=== PATIENT | male | born 1950 | race Caucasian/White ===

== ENCOUNTER → 2019-05-25 | Outpatient (REF) | payer MEDICARE, MEDICAID ==
[2019-05-25 11:18] LABS: BASO # 0.1 10^3/uL (0.0-0.2); BASO % 0.5 % (0.0-1.0); EOS # 0.6 10^3/uL (0.0-0.5); EOS % 4.5 % (0.0-3.0); HEMATOCRIT 45.6 % (42.0-52.0); HEMOGLOBIN 14.8 g/dl (13.5-17.5); LYMPH # 2.3 10^3/uL (1.5-5.0); LYMPH % 17.9 % (24.0-44.0); MEAN CORPUSCULAR HEMOGLOBIN 29.1 pg (27.0-33.0); MEAN CORPUSCULAR HGB CONC 32.5 g/dl (32.0-36.5); MEAN CORPUSCULAR VOLUME 89.8 fl (80.0-96.0); MONO # 1.2 10^3/uL (0.0-0.8); MONO % 9.6 % (0.0-5.0); NEUTROPHILS # 8.7 10^3/uL (1.5-8.5); NEUTROPHILS % 66.7 % (36.0-66.0); PLATELET COUNT, AUTOMATED 218 10^3/uL (150-450); RED BLOOD COUNT 5.08 10^6/uL (4.30-6.10)
[2019-05-25 12:01] LABS: CALCIUM LEVEL 9.7 MG/DL (8.8-10.2); CREATININE FOR GFR 1.49 MG/DL (0.70-1.30); CREATININE, URINE 71.6 MG/DL; GLOMERULAR FILTRATION RATE 50.2 (>49); MALB URINE SIEMENS 75.2 MG/L; POTASSIUM SERUM 3.9 MEQ/L (3.5-5.1)
[2019-05-25 12:02] LABS: ALBUMIN 4.4 GM/DL (3.2-5.2); BILIRUBIN,TOTAL 1.5 MG/DL (0.2-1.0); CHOLESTEROL RISK RATIO 5.051 (<5); FREE T4 0.85 NG/DL (0.76-1.46); THYROID STIMULATING HORMONE 2.72 uIU/ML (0.358-3.740); TOTAL PROTEIN 7.7 GM/DL (6.4-8.2)
[2019-05-25 12:12] LABS: HEMOGLOBIN A1c 6.2 %
== END ==
LOC: M SFHCPLAZ 09:44
PROVIDERS: ATTEND Nurse Practitioner Family
DX: E11.9 Type 2 diabetes mellitus without complications (principal); E78.5 Hyperlipidemia, unspecified; I10 Essential (primary) hypertension

== ENCOUNTER → 2019-08-03 | Outpatient (REF) ==
[2019-08-03 10:53] LABS: BASO % 0.5 % (0.0-1.0); EOS # 0.7 10^3/uL (0.0-0.5); EOS % 10.5 % (0.0-3.0); HEMATOCRIT 25.2 % (42.0-52.0); HEMOGLOBIN 7.9 g/dl (13.5-17.5); LYMPH # 1.7 10^3/uL (1.5-5.0); LYMPH % 27.4 % (24.0-44.0); MEAN CORPUSCULAR HEMOGLOBIN 28.6 pg (27.0-33.0); MEAN CORPUSCULAR HGB CONC 31.3 g/dl (32.0-36.5); MEAN CORPUSCULAR VOLUME 91.3 fl (80.0-96.0); MONO # 0.9 10^3/uL (0.0-0.8); MONO % 13.9 % (0.0-5.0); NEUTROPHILS # 2.9 10^3/uL (1.5-8.5); NEUTROPHILS % 45.3 % (36.0-66.0); PLATELET COUNT, AUTOMATED 294 10^3/uL (150-450); RED BLOOD COUNT 2.76 10^6/uL (4.30-6.10); WHITE BLOOD COUNT 6.3 10^3/uL (4.0-10.0)
[2019-08-03 11:13] LABS: ALBUMIN 2.7 GM/DL (3.2-5.2); CALCIUM LEVEL 7.8 MG/DL (8.8-10.2); CREATININE FOR GFR 5.76 MG/DL (0.70-1.30); GLOMERULAR FILTRATION RATE 10.5 (>49); PHOSPHORUS LEVEL 6.4 MG/DL (2.5-4.9); POTASSIUM SERUM 3.3 MEQ/L (3.5-5.1)
== END ==
LOC: SKLAB3 06:54
PROVIDERS: ATTEND Family Medicine
DX: N18.9 Chronic kidney disease, unspecified (principal)

== ENCOUNTER → 2019-08-06 | Outpatient (REF) ==
[2019-08-06 11:17] LABS: CALCIUM LEVEL 8.7 MG/DL (8.8-10.2); CREATININE FOR GFR 5.56 MG/DL (0.70-1.30); PHOSPHORUS LEVEL 5.4 MG/DL (2.5-4.9); POTASSIUM SERUM 4.4 MEQ/L (3.5-5.1)
== END ==
LOC: SKLAB3 07:06
PROVIDERS: ATTEND Family Medicine
DX: N18.9 Chronic kidney disease, unspecified (principal)

== ENCOUNTER → 2019-08-07 | Outpatient (REF) ==
[2019-08-07 08:52] LABS: BASO # 0.1 10^3/uL (0.0-0.2); BASO % 0.4 % (0.0-1.0); HEMATOCRIT 27.9 % (42.0-52.0); HEMOGLOBIN 8.8 g/dl (13.5-17.5); LYMPH # 2.6 10^3/uL (1.5-5.0); LYMPH % 22.6 % (24.0-44.0); MEAN CORPUSCULAR HEMOGLOBIN 28.3 pg (27.0-33.0); MEAN CORPUSCULAR HGB CONC 31.5 g/dl (32.0-36.5); MEAN CORPUSCULAR VOLUME 89.7 fl (80.0-96.0); MONO % 8.5 % (0.0-5.0); NEUTROPHILS # 6.5 10^3/uL (1.5-8.5); NEUTROPHILS % 57.5 % (36.0-66.0); PLATELET COUNT, AUTOMATED 352 10^3/uL (150-450); RED BLOOD COUNT 3.11 10^6/uL (4.30-6.10); WHITE BLOOD COUNT 11.4 10^3/uL (4.0-10.0)
== END ==
LOC: SKLAB3 07:00
PROVIDERS: ATTEND Family Medicine
DX: D64.9 Anemia, unspecified (principal)

== ENCOUNTER → 2019-08-09 | Outpatient (REF) ==
[2019-08-09 08:28] LABS: BASO # 0.1 10^3/uL (0.0-0.2); BASO % 0.6 % (0.0-1.0); EOS # 0.9 10^3/uL (0.0-0.5); EOS % 9.3 % (0.0-3.0); HEMOGLOBIN 9.1 g/dl (13.5-17.5); LYMPH # 2.6 10^3/uL (1.5-5.0); LYMPH % 26.4 % (24.0-44.0); MEAN CORPUSCULAR HGB CONC 32.5 g/dl (32.0-36.5); MEAN CORPUSCULAR VOLUME 89.2 fl (80.0-96.0); MONO # 0.9 10^3/uL (0.0-0.8); MONO % 9.3 % (0.0-5.0); NEUTROPHILS # 5.1 10^3/uL (1.5-8.5); NEUTROPHILS % 52.2 % (36.0-66.0); PLATELET COUNT, AUTOMATED 372 10^3/uL (150-450); RED BLOOD COUNT 3.14 10^6/uL (4.30-6.10); WHITE BLOOD COUNT 9.8 10^3/uL (4.0-10.0)
[2019-08-09 08:50] LABS: ALBUMIN 3.1 GM/DL (3.2-5.2); CALCIUM LEVEL 9.3 MG/DL (8.8-10.2); CREATININE FOR GFR 5.02 MG/DL (0.70-1.30); GLOMERULAR FILTRATION RATE 12.3 (>49); POTASSIUM SERUM 5.2 MEQ/L (3.5-5.1)
[2019-08-09 09:01] LABS: TOTAL 25(OH) VITAMIN D 35.2 NG/ML (30.0-100.0)
== END ==
LOC: SKLAB3 07:00
PROVIDERS: ATTEND Family Medicine
DX: N18.9 Chronic kidney disease, unspecified (principal); E55.9 Vitamin D deficiency, unspecified; D64.9 Anemia, unspecified

== ENCOUNTER → 2019-08-14 | Outpatient (REF) | LOC: SKLAB3 11:31 | PROVIDERS: ATTEND Internal Medicine | DX: Z03.818 Encounter for observation for suspected exposure to other biological agents ruled out (principal) ==

== ENCOUNTER → 2019-08-16 | Outpatient (REF) ==
[2019-08-16 15:16] LABS: APPEARANCE, URINE CLEAR (CLEAR); BACTERIA, URINE AUTO NEGATIVE (NEGATIVE); BILIRUBIN, URINE AUTO NEGATIVE (NEGATIVE); BLOOD, URINE BLOOD NEGATIVE (NEGATIVE); COLOR, URINE YELLOW (YELLOW); GLUCOSE, URINE (UA) AUTO NEGATIVE (NEGATIVE); KETONE, URINE AUTO NEGATIVE (NEGATIVE); LEUKOCYTE ESTERASE, URINE AUTO NEGATIVE (NEGATIVE); MUCUS, URINE SMALL (NEGATIVE); NITRITE, URINE AUTO NEGATIVE (NEGATIVE); PROTEIN, URINE AUTO 1+ mg/dL (NEGATIVE); RBC, URINE AUTO 3 /HPF (0-3); SPECIFIC GRAVITY URINE AUTO 1.011 (1.002-1.035); SQUAMOUS EPITHELIAL CELL UR AU 0 /HPF (0-6); UROBILINOGEN, URINE AUTO 0.2 mg/dL (0.0-2.0); WBC, URINE AUTO 2 /HPF (0-3)
--- NOTE | 2019-08-17 13:10 | NOCOX ---
DATE OF STUDY: 08/16/2019 Nocturnal oximetry was performed on room air. Testing was of good quality. Total valid sampling was 9 hours and 5 minutes. There were no significant oxygen desaturations. There was minimal variability with oxygen saturations ranging 92% to 100%, heart rate ranging 63-112. Only minimal artifact. IMPRESSION: Minimal variation without significant hypoxia. If there is concern for obstructive sleep apnea, would consider referral for possible formal polysomnogram.
== END ==
LOC: SKLAB3 07:00
PROVIDERS: ATTEND Family Medicine
DX: N18.9 Chronic kidney disease, unspecified (principal)

== ENCOUNTER → 2019-08-21 | Outpatient (REF) | payer MEDICARE, MEDICAID ==
[2019-08-21 17:56] LABS: BASO # 0.1 10^3/uL (0.0-0.2); BASO % 0.8 % (0.0-1.0); EOS % 7.5 % (0.0-3.0); HEMATOCRIT 32.7 % (42.0-52.0); HEMOGLOBIN 10.3 g/dl (13.5-17.5); LYMPH # 4.3 10^3/uL (1.5-5.0); LYMPH % 34.2 % (24.0-44.0); MEAN CORPUSCULAR HEMOGLOBIN 28.8 pg (27.0-33.0); MEAN CORPUSCULAR HGB CONC 31.5 g/dl (32.0-36.5); MEAN CORPUSCULAR VOLUME 91.3 fl (80.0-96.0); MONO # 1.2 10^3/uL (0.0-0.8); MONO % 9.4 % (0.0-5.0); NEUTROPHILS % 47.5 % (36.0-66.0); PLATELET COUNT, AUTOMATED 306 10^3/uL (150-450); RED BLOOD COUNT 3.58 10^6/uL (4.30-6.10); WHITE BLOOD COUNT 12.6 10^3/uL (4.0-10.0)
[2019-08-21 18:00] LABS: AMORPHOUS SEDIMENT SMALL (NEGATIVE); APPEARANCE, URINE HAZY (CLEAR); BACTERIA, URINE AUTO 1+ (NEGATIVE); BILIRUBIN, URINE AUTO NEGATIVE (NEGATIVE); BLOOD, URINE BLOOD NEGATIVE (NEGATIVE); COLOR, URINE YELLOW (YELLOW); GLUCOSE, URINE (UA) AUTO NEGATIVE (NEGATIVE); KETONE, URINE AUTO NEGATIVE (NEGATIVE); LEUKOCYTE ESTERASE, URINE AUTO NEGATIVE (NEGATIVE); MUCUS, URINE SMALL (NEGATIVE); NITRITE, URINE AUTO NEGATIVE (NEGATIVE); PROTEIN, URINE AUTO 1+ mg/dL (NEGATIVE); RBC, URINE AUTO 0 /HPF (0-3); SPECIFIC GRAVITY URINE AUTO 1.011 (1.002-1.035); SQUAMOUS EPITHELIAL CELL UR AU 0 /HPF (0-6); UROBILINOGEN, URINE AUTO 0.2 mg/dL (0.0-2.0); WBC, URINE AUTO 4 /HPF (0-3)
[2019-08-21 18:28] LABS: ALBUMIN 4.3 GM/DL (3.2-5.2); ALT/SGPT 40 U/L (12-78); BILIRUBIN,TOTAL 0.9 MG/DL (0.2-1.0); BLOOD UREA NITROGEN 67 MG/DL (7-18); CALCIUM LEVEL 9.4 MG/DL (8.8-10.2); CARBON DIOXIDE LEVEL 21 MEQ/L (21-32); CHLORIDE LEVEL 105 MEQ/L (98-107); CHOLESTEROL LEVEL 144 MG/DL (<200); CHOLESTEROL RISK RATIO 4.235 (<5); CREATININE FOR GFR 5.12 MG/DL (0.70-1.30); FREE T4 1.16 NG/DL (0.76-1.46); GLOMERULAR FILTRATION RATE 12.1 (>49); GLUCOSE, FASTING 108 MG/DL (70-100); HDL CHOLESTEROL 34 MG/DL (>40); NON-HDL-C 110 MG/DL; POTASSIUM SERUM 4.7 MEQ/L (3.5-5.1); SODIUM LEVEL 137 MEQ/L (136-145); TOTAL PROTEIN 8.7 GM/DL (6.4-8.2); TRIGLYCERIDES LEVEL 544 MG/DL (<150); VITAMIN B12 LEVEL 719 PG/ML (247-911)
[2019-08-21 18:41] LABS: MAU/CREAT RATIO 154.2 MCG/MG (0.0-30.0)
== END ==
LOC: M SFHCPLAZ 15:43
PROVIDERS: ATTEND Family Medicine
DX: E78.5 Hyperlipidemia, unspecified (principal); N18.4 Chronic kidney disease, stage 4 (severe); E11.9 Type 2 diabetes mellitus without complications; Z12.5 Encounter for screening for malignant neoplasm of prostate
CPT/HCPCS: 36415; 80053; 80061; 81001; 82043; 82607; 83036; 83525; 84165; 84439; 84443; 85025; 85046; G0103

== ENCOUNTER → 2019-08-31 | Outpatient (CLI) | payer MEDICARE, MEDICAID ==
--- NOTE | 2019-08-31 11:35 | REP ---
LOW DOSE LUNG SCREENING CT: Low dose lung screening CT exam is performed without IV contrast. Scattered bilateral fibrotic changes are present. There is a calcified granuloma in the right upper lobe. No suspicious pulmonary nodule is seen. There is mild diffuse bronchiectasis. There is no consolidating infiltrate. Multiple sternal wires and mediastinal clips are present. There are mild atherosclerotic calcifications of the thoracic aorta with ectasia of the ascending thoracic aorta 4.6 cm in AP dimension. There are degenerative changes of the spine. The heart is upper limits of normal in size. No pleural effusion is seen. IMPRESSION: Lung RADS category [address] No suspicious nodules. Recommend followup exam in 1 year. Electronically Signed by Marshall Quiroz MD 08/31/2019 11:43 A
== END ==
LOC: M RAD 10:13
PROVIDERS: ATTEND Family Medicine

== ENCOUNTER → 2019-10-04 | Outpatient (REF) | payer OTHER, MEDICAID ==
[2019-10-04 17:49] LABS: PERCENT SATURATION 18.6 % (19.7-50.0)
== END ==
LOC: M LAB REF 16:44
PROVIDERS: ATTEND Internal Medicine Nephrology
DX: N18.9 Chronic kidney disease, unspecified (principal); D63.1 Anemia in chronic kidney disease

== ENCOUNTER → 2019-10-18 | Outpatient (REF) | payer MEDICARE, MEDICAID ==
[2019-10-18 19:41] LABS: BASO # 0.1 10^3/uL (0.0-0.2); BASO % 0.7 % (0.0-1.0); EOS # 0.9 10^3/uL (0.0-0.5); EOS % 7.1 % (0.0-3.0); LYMPH # 4.4 10^3/uL (1.5-5.0); MEAN CORPUSCULAR HGB CONC 30.8 g/dl (32.0-36.5); MEAN CORPUSCULAR VOLUME 91.1 fl (80.0-96.0); MONO % 15.5 % (0.0-5.0); NEUTROPHILS # 5.4 10^3/uL (1.5-8.5); NEUTROPHILS % 42.3 % (36.0-66.0); PLATELET COUNT, AUTOMATED 304 10^3/uL (150-450); RED BLOOD COUNT 4.28 10^6/uL (4.30-6.10); WHITE BLOOD COUNT 12.8 10^3/uL (4.0-10.0)
[2019-10-18 20:08] LABS: ALBUMIN 4.3 GM/DL (3.2-5.2); BILIRUBIN,TOTAL 1.1 MG/DL (0.2-1.0); CALCIUM LEVEL 9.1 MG/DL (8.8-10.2); CREATININE FOR GFR 4.6 MG/DL (0.70-1.30); GLOMERULAR FILTRATION RATE 13.6 (>49); POTASSIUM SERUM 4.4 MEQ/L (3.5-5.1); TOTAL PROTEIN 8.2 GM/DL (6.4-8.2)
[2019-10-19 09:56] LABS: HEMOGLOBIN A1c 5.4 %
== END ==
LOC: M SFHCPLAZ 15:08
PROVIDERS: ATTEND Physician Assistant Medical
DX: E11.9 Type 2 diabetes mellitus without complications (principal); N18.4 Chronic kidney disease, stage 4 (severe); D63.8 Anemia in other chronic diseases classified elsewhere

== ENCOUNTER 2019-10-24 10:24 | Outpatient (CLI) | payer MEDICARE, MEDICAID ==
[~2019-10-24] VITALS: Ht 170.2 cm; Wt 95.9 kg
[2019-10-24 10:43] VITALS: BP 181/91
[2019-10-24] MEDS ORDERED: ALBUTEROL SULFATE 2.5 MG/0.5 ML INH NEB SOLN INH PRN (10:45)
[2019-10-24] MEDS ORDERED: NS 1,000 ML IV SCH (10:45)
[2019-10-24] MEDS ORDERED: methylPREDNISolone 125MG 2ML VIAL IV PRN (10:45)
[2019-10-24] MEDS ORDERED: EPINEPHrine INJ 1 MG/ML 1ML AMP IM PRN (10:45)
[2019-10-24] MEDS ORDERED: FERRIC CARBOXYMALTOSE INJ 750 MG in NS 250 ML IV ONE (10:45)
[2019-10-24] MEDS ORDERED: diphenhydrAMINE 50MG/ML VIAL (J1200) IV PRN (10:45)
[2019-10-24 11:15] VITALS: BP 143/86
[2019-10-24 13:00] VITALS: BP 151/82
== END 2019-10-24 13:00 | disposition home or self-care (01) ==
LOC: M INFU 10:24
PROVIDERS: ATTEND Internal Medicine Nephrology
DX: D64.9 Anemia, unspecified (principal); N18.9 Chronic kidney disease, unspecified
CPT/HCPCS: 96365; J1439

== ENCOUNTER 2019-10-31 10:51 | Outpatient (CLI) | payer MEDICARE, MEDICAID ==
[2019-10-31] MEDS ORDERED: FERRIC CARBOXYMALTOSE ONE (13:00)
== END 2019-10-31 13:30 | disposition home or self-care (01) ==
LOC: M INFU 10:51
PROVIDERS: ATTEND Internal Medicine Nephrology
DX: N18.9 Chronic kidney disease, unspecified (principal); D50.9 Iron deficiency anemia, unspecified
CPT/HCPCS: 96365; 96366; J1439

== ENCOUNTER → 2020-08-05 | Outpatient (CLI) | payer MEDICARE, MEDICAID ==
[2020-08-05 12:15] LABS: BASO # 0.1 10^3/uL (0.0-0.2); BASO % 0.5 % (0.0-1.0); EOS # 0.7 10^3/uL (0.0-0.5); EOS % 5.2 % (0.0-3.0); HEMATOCRIT 40.2 % (42.0-52.0); LYMPH # 3.9 10^3/uL (1.5-5.0); LYMPH % 29.5 % (24.0-44.0); MEAN CORPUSCULAR HGB CONC 32.3 g/dl (32.0-36.5); MEAN CORPUSCULAR VOLUME 86.5 fl (80.0-96.0); MONO # 1.5 10^3/uL (0.0-0.8); MONO % 11.5 % (2.0-8.0); NEUTROPHILS # 6.9 10^3/uL (1.5-8.5); NEUTROPHILS % 52.7 % (36.0-66.0); PLATELET COUNT, AUTOMATED 233 10^3/uL (150-450); RED BLOOD COUNT 4.65 10^6/uL (4.30-6.10)
[2020-08-05 12:35] LABS: HEMOGLOBIN A1c 6.1 %
[2020-08-05 12:38] LABS: WHITE BLOOD COUNT 13.2 10^3/uL (4.0-10.0)
[2020-08-05 12:49] LABS: BILIRUBIN,TOTAL 1.6 MG/DL (0.2-1.0); CALCIUM LEVEL 9.8 MG/DL (8.8-10.2); CREATININE FOR GFR 2.85 MG/DL (0.70-1.30); GLOMERULAR FILTRATION RATE 23.6 (>49); POTASSIUM SERUM 3.5 MEQ/L (3.5-5.1)
[2020-08-05 12:50] LABS: ALBUMIN 4.1 GM/DL (3.2-5.2); CHOLESTEROL RISK RATIO 4.181 (<5); TOTAL PROTEIN 7.8 GM/DL (6.4-8.2)
== END ==
LOC: M WUC 09:17
PROVIDERS: ATTEND Nurse Practitioner Family
DX: E11.9 Type 2 diabetes mellitus without complications (principal); D63.8 Anemia in other chronic diseases classified elsewhere; E78.5 Hyperlipidemia, unspecified; Z12.5 Encounter for screening for malignant neoplasm of prostate
CPT/HCPCS: 36415; 80053; 80061; 83036; 85025; G0103

== ENCOUNTER → 2020-10-08 | Outpatient (REF) | payer MEDICARE, MEDICAID | LOC: M LAB REF 17:16 | PROVIDERS: ATTEND Internal Medicine Nephrology | DX: E87.6 Hypokalemia (principal) ==

== ENCOUNTER → 2021-03-06 | Outpatient (CLI) | payer MEDICARE, MEDICAID ==
--- NOTE | 2021-03-08 06:23 | REP ---
INDICATION: SMOKER COMPARISON: 08/31/2019 TECHNIQUE: Axial noncontrast images from the thoracic inlet to the upper abdomen using low-dose lung screening technique (LDCT). FINDINGS: Lung cain are relatively symmetric with minimal chronic age-related interstitial changes and small focal areas of scarring primarily in the middle lobe and lingula. No acute consolidation, suspicious nodule or mass. No effusion. No pneumothorax. No obvious adenopathy. Tracheobronchial tree is patent. IMPRESSION: Lung-RADS category 1. Chronic stable changes. Management recommendations include annual low-dose CT surveillance. <Electronically signed by Zhang Hawkins > 03/08/21 0619
== END ==
LOC: M RAD 14:09
PROVIDERS: ATTEND Nurse Practitioner Adult Health
DX: Z87.891 Personal history of nicotine dependence (principal)

== ENCOUNTER → 2021-04-30 | Outpatient (CLI) | payer MEDICARE, MEDICAID ==
[2021-04-30 11:43] LABS: BASO # 0.1 10^3/uL (0.0-0.2); BASO % 0.6 % (0.0-1.0); EOS # 0.7 10^3/uL (0.0-0.5); EOS % 5.3 % (0.0-3.0); HEMATOCRIT 39.7 % (42.0-52.0); HEMOGLOBIN 12.1 g/dl (13.5-17.5); LYMPH # 3.9 10^3/uL (1.5-5.0); LYMPH % 28.6 % (24.0-44.0); MEAN CORPUSCULAR HEMOGLOBIN 26.9 pg (27.0-33.0); MEAN CORPUSCULAR HGB CONC 30.5 g/dl (32.0-36.5); MEAN CORPUSCULAR VOLUME 88.4 fl (80.0-96.0); MONO # 1.4 10^3/uL (0.0-0.8); MONO % 9.9 % (2.0-8.0); NEUTROPHILS # 7.5 10^3/uL (1.5-8.5); NEUTROPHILS % 54.6 % (36.0-66.0); PLATELET COUNT, AUTOMATED 271 10^3/uL (150-450); RED BLOOD COUNT 4.49 10^6/uL (4.30-6.10); WHITE BLOOD COUNT 13.7 10^3/uL (4.0-10.0)
[2021-04-30 13:46] LABS: HEMOGLOBIN A1c 7.1 %
[2021-04-30 14:55] LABS: ALT/SGPT 54 U/L (12-78); BLOOD UREA NITROGEN 27 MG/DL (7-18); CALCIUM LEVEL 9.3 MG/DL (8.8-10.2); CARBON DIOXIDE LEVEL 27 MEQ/L (21-32); CHLORIDE LEVEL 100 MEQ/L (98-107); CREATININE FOR GFR 2.95 MG/DL (0.70-1.30); GLOMERULAR FILTRATION RATE 22.7 (>49); GLUCOSE, FASTING 151 MG/DL (70-100); POTASSIUM SERUM 3.9 MEQ/L (3.5-5.1); SODIUM LEVEL 137 MEQ/L (136-145); TRIGLYCERIDES LEVEL 240 MG/DL (<150)
[2021-04-30 14:56] LABS: ALBUMIN 3.6 GM/DL (3.2-5.2); CHOLESTEROL LEVEL 106 MG/DL (<200); CHOLESTEROL RISK RATIO 3.785 (<5); HDL CHOLESTEROL 28 MG/DL (>40); LDL CHOLESTEROL 30 MG/DL (<100); NON-HDL-C 78 MG/DL
[2021-05-01 10:54] LABS: TOTAL 25(OH) VITAMIN D 71.7 NG/ML (30.0-100.0)
== END ==
LOC: M WUC 09:42
PROVIDERS: ATTEND Nurse Practitioner Family
DX: Z12.5 Encounter for screening for malignant neoplasm of prostate (principal); E78.5 Hyperlipidemia, unspecified; D63.8 Anemia in other chronic diseases classified elsewhere; E11.9 Type 2 diabetes mellitus without complications; E55.9 Vitamin D deficiency, unspecified
CPT/HCPCS: 36415; 80053; 80061; 82043; 82306; 83036; 85025; G0103

== ENCOUNTER → 2021-08-05 | Outpatient (CLI) | payer MEDICARE, MEDICAID | LOC: M SLEEP 20:00 | PROVIDERS: ATTEND Nurse Practitioner Adult Health | DX: G47.30 Sleep apnea, unspecified (principal) ==

== ENCOUNTER → 2022-01-12 | Outpatient (CLI) | payer MEDICARE, MEDICAID | LOC: M SLEEP 20:00 | PROVIDERS: ATTEND Nurse Practitioner Adult Health | DX: G47.33 Obstructive sleep apnea (adult) (pediatric) (principal) ==

== ENCOUNTER → 2022-03-08 | Outpatient (CLI) | payer MEDICARE, MEDICAID | LOC: M RAD 07:44 | PROVIDERS: ATTEND Nurse Practitioner Adult Health | DX: Z87.891 Personal history of nicotine dependence (principal) ==

== ENCOUNTER → 2022-09-30 | Outpatient (REF) | payer MEDICARE, MEDICAID ==
[2022-09-30 18:49] LABS: PERCENT SATURATION 10.6 % (19.7-50.0)
[2022-09-30 18:51] LABS: FERRITIN 9.2 NG/ML (10.5-307.3)
== END ==
LOC: M LAB REF 17:35
PROVIDERS: ATTEND Nurse Practitioner Family
DX: D50.9 Iron deficiency anemia, unspecified (principal)

== ENCOUNTER 2022-11-02 09:56 | Outpatient (CLI) | payer MEDICARE, MEDICAID ==
[~2022-11-02] VITALS: Ht 170.2 cm; Wt 98.0 kg
[~2022-11-02 09:56] MED LIST: ALBUTEROL SULFATE 2.5MG/0.5ML INH NEB SOLN INH PRN; EPINEPHrine INJ 1 MG/ML 1ML AMP IM PRN; diphenhydrAMINE 50MG/ML VIAL IV PRN; methylPREDNISolone 125MG 2ML VIAL IV PRN
[2022-11-02 10:35] VITALS: BP 145/75; O2SAT 100
[2022-11-02] MEDS ORDERED: NS 1,000 ML IV SCH (11:00)
[2022-11-02] MEDS ORDERED: IRON SUCROSE 400 MG in NS 250 ML OVER 2.5 HRS IV ONE (11:00)
[2022-11-02 12:30] VITALS: BP 113/62; O2SAT 100
[2022-11-02 13:45] VITALS: BP 126/70; O2SAT 97
== END 2022-11-02 14:10 | disposition home or self-care (01) ==
LOC: M INFU 09:56
PROVIDERS: ATTEND Internal Medicine Nephrology
DX: D50.9 Iron deficiency anemia, unspecified (principal); Z88.0 Allergy status to penicillin; Z88.1 Allergy status to other antibiotic agents; Z88.8 Allergy status to other drugs, medicaments and biological substances
CPT/HCPCS: 96365; 96366; J1756

== ENCOUNTER → 2023-04-26 | Outpatient (CLI) | payer MEDICARE, MEDICAID | LOC: M RAD 11:38 | PROVIDERS: ATTEND Nurse Practitioner Adult Health | DX: Z87.891 Personal history of nicotine dependence (principal) ==

== ENCOUNTER → 2023-06-08 | Outpatient (REF) | payer MEDICARE, MEDICAID ==
[2023-06-08 18:26] LABS: PERCENT SATURATION 4.9 % (19.7-50.0)
[2023-06-08 18:29] LABS: FERRITIN 6.4 NG/ML (10.5-307.3)
== END ==
LOC: M LAB REF 17:23
PROVIDERS: ATTEND Nurse Practitioner Family
DX: D50.9 Iron deficiency anemia, unspecified (principal)

== ENCOUNTER 2023-06-21 06:21 | Outpatient (CLI) | payer MEDICARE, MEDICAID ==
[~2023-06-21] VITALS: Ht 170.2 cm; Wt 98.1 kg
[2023-06-21] MEDS ORDERED: methylPREDNISolone 125MG 2ML VIAL IV PRN (07:01)
[2023-06-21] MEDS ORDERED: ALBUTEROL SULFATE 2.5MG/0.5ML INH NEB SOLN INH PRN (07:01)
[2023-06-21] MEDS ORDERED: EPINEPHrine INJ 1 MG/ML 1ML AMP IM PRN (07:01)
[2023-06-21] MEDS ORDERED: diphenhydrAMINE 50MG/ML VIAL IV PRN (07:01)
[2023-06-21] MEDS ORDERED: NS 1,000 ML IV SCH (07:30)
[2023-06-21 07:37] VITALS: BP 134/68; O2SAT 99
[2023-06-21] MEDS: IRON SUCROSE 25 MG in NS 23.75 ML IV ONE (07:55)
[2023-06-21 08:40] VITALS: BP 125/64; O2SAT 98
[2023-06-21] MEDS: IRON SUCROSE 475 MG in NS 250 ML IV ONE (08:41)
[2023-06-21 09:30] VITALS: BP 123/69; O2SAT 98
[2023-06-21 10:30] VITALS: BP 138/76; O2SAT 97
[2023-06-21 11:30] VITALS: BP 133/87; O2SAT 97
[2023-06-21 12:50] VITALS: BP 136/75; O2SAT 97
== END 2023-06-21 12:40 | disposition home or self-care (01) ==
LOC: M INFU 06:21
PROVIDERS: ATTEND Nurse Practitioner Family
DX: N18.9 Chronic kidney disease, unspecified (principal); D63.1 Anemia in chronic kidney disease; Z88.0 Allergy status to penicillin; Z88.1 Allergy status to other antibiotic agents; Z88.7 Allergy status to serum and vaccine
CPT/HCPCS: 96365; 96366; J1756

== ENCOUNTER 2023-07-05 09:30 | Outpatient (CLI) | payer MEDICARE, MEDICAID ==
[~2023-07-05] VITALS: Ht 170.2 cm; Wt 98.2 kg
[2023-07-05 09:30] VITALS: BP 175/82; O2SAT 100
[~2023-07-05 09:30] MED LIST changes: +NS 1,000 ML IV SCH
[2023-07-05] MEDS: IRON SUCROSE 500 MG in NS 250 ML OVER 4 HRS IV ONE (09:54)
[2023-07-05 12:00] VITALS: BP 110/66; O2SAT 96
[2023-07-05 13:40] VITALS: BP 108/58; O2SAT 95
[2023-07-05 14:33] VITALS: BP 105/63; O2SAT 94
== END 2023-07-05 14:35 | disposition home or self-care (01) ==
LOC: M INFU 09:30
PROVIDERS: ATTEND Nurse Practitioner Family
DX: N18.9 Chronic kidney disease, unspecified (principal); D63.1 Anemia in chronic kidney disease
CPT/HCPCS: 96365; 96366; J1756

== ENCOUNTER → 2023-09-09 | Outpatient (CLI) | payer MEDICARE, MEDICAID ==
[2023-09-09 17:22] LABS: BASO # 0.1 10^3/uL (0.0-0.2); BASO % 0.7 % (0.0-1.0); EOS # 0.5 10^3/uL (0.0-0.5); EOS % 3.8 % (0.0-3.0); HEMOGLOBIN 11.7 g/dl (13.5-17.5); LYMPH # 4.5 10^3/uL (1.5-5.0); MEAN CORPUSCULAR HEMOGLOBIN 25.9 pg (27.0-33.0); MEAN CORPUSCULAR VOLUME 86.5 fl (80.0-96.0); MONO # 1.6 10^3/uL (0.0-0.8); MONO % 12.1 % (2.0-8.0); NEUTROPHILS # 6.8 10^3/uL (1.5-8.5); PLATELET COUNT, AUTOMATED 214 10^3/uL (150-450); RED BLOOD COUNT 4.51 10^6/uL (4.30-6.10); WHITE BLOOD COUNT 13.6 10^3/uL (4.0-10.0)
[2023-09-09 17:37] LABS: CREATININE, URINE 107.4 MG/DL; MAU/CREAT RATIO 20.4 MCG/MG (0.0-30.0)
[2023-09-09 17:48] LABS: PSA SCREENING 0.04 NG/ML (< 4.00)
[2023-09-09 17:49] LABS: ALBUMIN 3.9 G/DL (3.2-5.2); BILIRUBIN,TOTAL 1.9 MG/DL (0.3-1.2); CALCIUM LEVEL 9.4 MG/DL (8.3-10.6); CHOLESTEROL RISK RATIO 3.75 (<5); CREATININE FOR GFR 2.97 MG/DL (0.70-1.30); GLOMERULAR FILTRATION RATE 22.3 (>42); HDL CHOLESTEROL 29.6 MG/DL (>40); LDL CHOLESTEROL 31.2 MG/DL (<100); NON-HDL-C 81.4 MG/DL; PERCENT SATURATION 11.8 % (19.7-50.0); POTASSIUM SERUM 3.8 MMOL/L (3.5-5.1); TOTAL PROTEIN 7.9 G/DL (5.7-8.2)
[2023-09-09 17:58] LABS: HEMOGLOBIN A1c 5.7 % (4.0-6.0)
== END ==
LOC: M WUC 12:36
PROVIDERS: ATTEND Nurse Practitioner Family
DX: Z12.5 Encounter for screening for malignant neoplasm of prostate (principal); D63.8 Anemia in other chronic diseases classified elsewhere; E78.5 Hyperlipidemia, unspecified; Z79.899 Other long term (current) drug therapy
CPT/HCPCS: 36415; 80053; 80061; 82043; 83036; 83550; 85025; G0103

== ENCOUNTER → 2023-12-30 | Outpatient (REF) | payer MEDICARE, MEDICAID ==
[2023-12-30 18:01] LABS: PERCENT SATURATION 9.1 % (19.7-50.0)
[2023-12-30 18:03] LABS: FERRITIN 5.4 NG/ML (10.5-307.3)
== END ==
LOC: M LAB REF 17:08
PROVIDERS: ATTEND Nurse Practitioner Family
DX: D50.9 Iron deficiency anemia, unspecified (principal)

== ENCOUNTER 2024-01-18 08:15 | Outpatient (CLI) | payer MEDICARE, MEDICAID ==
[~2024-01-18] VITALS: Ht 170.2 cm; Wt 95.0 kg
[2024-01-18 08:45] VITALS: BP 147/73; O2SAT 100
[2024-01-18] MEDS: IRON SUCROSE 500 MG in NS 250 ML OVER 4 HRS IV ONE (09:19)
[2024-01-18 10:30] VITALS: BP 139/80; O2SAT 100
[2024-01-18 11:30] VITALS: BP 112/70; O2SAT 100
[2024-01-18 12:30] VITALS: BP 120/74; O2SAT 100
[2024-01-18 13:35] VITALS: BP 109/59; O2SAT 96
== END 2024-01-18 13:35 ==
LOC: M INFU 08:15
PROVIDERS: ATTEND Nurse Practitioner Family
DX: D50.9 Iron deficiency anemia, unspecified (principal); Z88.1 Allergy status to other antibiotic agents; Z88.7 Allergy status to serum and vaccine
CPT/HCPCS: 96365; 96366; J1756

== ENCOUNTER 2024-02-02 08:40 | Outpatient (CLI) | payer MEDICARE, MEDICAID ==
[~2024-02-02] VITALS: Ht 170.2 cm; Wt 95.9 kg
[2024-02-02 08:40] VITALS: BP 120/69; O2SAT 94
[2024-02-02] MEDS: IRON SUCROSE 500 MG in NS 250 ML OVER 4 HRS IV ONE (09:19)
[2024-02-02 10:51] VITALS: BP 129/74; O2SAT 98
[2024-02-02 13:20] VITALS: BP 149/87; O2SAT 98
== END 2024-02-02 13:40 ==
LOC: M INFU 08:40
PROVIDERS: ATTEND Nurse Practitioner Family
DX: D50.9 Iron deficiency anemia, unspecified (principal); Z88.1 Allergy status to other antibiotic agents; Z88.7 Allergy status to serum and vaccine
CPT/HCPCS: 96365; 96366; J1756

== ENCOUNTER → 2024-03-12 | Outpatient (CLI) | payer MEDICARE, MEDICAID ==
[2024-03-12 12:15] LABS: BASO # 0.1 10^3/uL (0.0-0.2); BASO % 0.9 % (0.0-1.0); EOS # 0.4 10^3/uL (0.0-0.5); HEMATOCRIT 36.4 % (42.0-52.0); HEMOGLOBIN 10.8 g/dl (13.5-17.5); LYMPH # 2.5 10^3/uL (1.5-5.0); LYMPH % 23.6 % (24.0-44.0); MEAN CORPUSCULAR HEMOGLOBIN 25.9 pg (27.0-33.0); MEAN CORPUSCULAR HGB CONC 29.7 g/dl (32.0-36.5); MEAN CORPUSCULAR VOLUME 87.3 fl (80.0-96.0); MONO # 1.3 10^3/uL (0.0-0.8); MONO % 11.9 % (2.0-8.0); NEUTROPHILS # 6.3 10^3/uL (1.5-8.5); NEUTROPHILS % 59.3 % (36.0-66.0); PLATELET COUNT, AUTOMATED 177 10^3/uL (150-450); RED BLOOD COUNT 4.17 10^6/uL (4.30-6.10); WHITE BLOOD COUNT 10.5 10^3/uL (4.0-10.0)
[2024-03-12 12:22] LABS: FREE T4 0.94 NG/DL (0.89-1.76); THYROID STIMULATING HORMONE 3.383 uIU/ML (0.55-4.78)
[2024-03-12 12:43] LABS: ALBUMIN 3.7 G/DL (3.2-5.2); BILIRUBIN,TOTAL 2.2 MG/DL (0.3-1.2); CALCIUM LEVEL 9.6 MG/DL (8.3-10.6); CHOLESTEROL RISK RATIO 4.16 (<5); CREATININE FOR GFR 2.8 MG/DL (0.70-1.30); GLOMERULAR FILTRATION RATE 23.9 (>42); HDL CHOLESTEROL 29.3 MG/DL (>40); LDL CHOLESTEROL 39.9 MG/DL (<100); NON-HDL-C 92.7 MG/DL; TOTAL PROTEIN 7.9 G/DL (5.7-8.2)
[2024-03-12 13:04] LABS: HEMOGLOBIN A1c 5.5 % (4.0-6.0)
== END ==
LOC: M WUC 09:13
PROVIDERS: ATTEND Nurse Practitioner Family
DX: I10 Essential (primary) hypertension (principal); E11.9 Type 2 diabetes mellitus without complications; E78.5 Hyperlipidemia, unspecified

== ENCOUNTER → 2024-05-23 | Outpatient (CLI) | payer MEDICARE, MEDICAID | LOC: M RAD 14:14 | PROVIDERS: ATTEND Nurse Practitioner Adult Health | DX: Z87.891 Personal history of nicotine dependence (principal) ==

== ENCOUNTER 2024-10-22 11:04 | Outpatient (CLI) | payer MEDICARE, MEDICAID ==
[~2024-10-22] VITALS: Ht 170.2 cm; Wt 94.1 kg
[~2024-10-22 11:04] MED LIST changes: +ALBUTEROL SULFATE 2.5 MG/0.5 ML INH CONCENTRATE NEB SOLN INH PRN; -ALBUTEROL SULFATE 2.5MG/0.5ML INH NEB SOLN INH PRN; -NS 1,000 ML IV SCH; +diphenhydrAMINE 50 MG/ML VIAL IV PRN; -diphenhydrAMINE 50MG/ML VIAL IV PRN; -methylPREDNISolone 125MG 2ML VIAL IV PRN
[2024-10-22 11:20] VITALS: BP 113/67; O2SAT 100
[2024-10-22] MEDS: IRON SUCROSE 500 MG in NS 250 ML OVER 4 HRS IV ONE (11:54)
[2024-10-22 13:00] VITALS: BP 124/74; O2SAT 100
[2024-10-22 14:00] VITALS: BP 136/84; O2SAT 100
[2024-10-22 15:00] VITALS: BP 149/77; O2SAT 98
[2024-10-22 15:55] VITALS: BP 125/73; O2SAT 98
== END 2024-10-22 16:15 | disposition home or self-care (01) ==
LOC: M INFU 11:04
PROVIDERS: ATTEND Nurse Practitioner Family
DX: D50.9 Iron deficiency anemia, unspecified (principal); Z88.1 Allergy status to other antibiotic agents; Z88.7 Allergy status to serum and vaccine
CPT/HCPCS: 96365; 96366; J1756

== ENCOUNTER 2024-11-05 10:33 | Outpatient (CLI) | payer MEDICARE, MEDICAID ==
[~2024-11-05] VITALS: Ht 170.2 cm; Wt 94.0 kg
[~2024-11-05 10:33] MED LIST changes: +NS (Normal Saline) 0.9% 1,000 ML IV SCH
[2024-11-05 11:00] VITALS: BP 125/65; O2SAT 98
[2024-11-05] MEDS: IRON SUCROSE 500 MG in NS 250 ML OVER 4 HRS IV ONE (11:39)
[2024-11-05 12:30] VITALS: BP 130/71; O2SAT 99
[2024-11-05 13:30] VITALS: BP 129/80; O2SAT 98
[2024-11-05 15:20] VITALS: BP 126/71; O2SAT 98
== END 2024-11-05 15:30 | disposition home or self-care (01) ==
LOC: M INFU 10:33
PROVIDERS: ATTEND Nurse Practitioner Family
DX: D50.9 Iron deficiency anemia, unspecified (principal); Z88.1 Allergy status to other antibiotic agents; Z88.7 Allergy status to serum and vaccine
CPT/HCPCS: 96365; 96366; J1756

== ENCOUNTER 2025-03-05 09:30 | Inpatient (IN) | payer MEDICARE, MEDICAID ==
[2025-03-05] VITALS (7 sets, daily range): BP systolic 110–119; BP diastolic 58–62; TEMP 97–98.8; O2SAT 96–99
[~2025-03-05] VITALS: Ht 170.2 cm; Wt 95.7 kg
[2025-03-05] MEDS ORDERED: ROSU20TA86 PO (09:55)
[2025-03-05] MEDS ORDERED: POTA10CA70 PO (09:55)
[2025-03-05] MEDS ORDERED: TORS10TA3 PO (09:55)
[2025-03-05] MEDS ORDERED: JANU25TA PO (09:58)
[2025-03-05] MEDS ORDERED: CLOP75TA2 PO (09:58)
[2025-03-05] MEDS ORDERED: PANT40TA29 PO (09:58)
[2025-03-05] MEDS ORDERED: ASPI81CH33 PO (09:58)
[2025-03-05] MEDS ORDERED: CALC1CAP31 PO (09:58)
[2025-03-05] MEDS ORDERED: METO100T5 PO (09:58)
[2025-03-05 10:26] LABS: VENOUS BASE EXCESS -4.9 (-2.0-2.0); VENOUS HCO3 20.8 MMOL/L (23.0-27.0); VENOUS O2 SATURATION 51.8 % (60.0-80.0); VENOUS PARTIAL PRESSURE CO2 41.1 mmHg (38.0-50.0); VENOUS PARTIAL PRESSURE O2 30.0 mmHg (30.0-50.0); VENOUS PH 7.323 UNITS (7.330-7.430); VENOUS STANDARD HCO3 19.7 MMOL/L; VENOUS TOTAL CO2 22.1 MMOL/L (24.0-28.0)
[2025-03-05 10:41] LABS: BASO # 0.1 10^3/uL (0.0-0.2); BASO % 0.4 % (0.0-1.0); EOS # 0.0 10^3/uL (0.0-0.5); EOS % 0.2 % (0.0-3.0); LYMPH # 0.9 10^3/uL (1.5-5.0); LYMPH % 6.3 % (24.0-44.0); MONO # 1.4 10^3/uL (0.0-0.8); MONO % 10.0 % (2.0-8.0); NEUTROPHILS # 11.2 10^3/uL (1.5-8.5); NEUTROPHILS % 82.6 % (36.0-66.0); PLATELET COUNT, AUTOMATED 143 10^3/uL (150-450)
[2025-03-05 11:01] LABS: INR 1.15
[2025-03-05 12:21] LABS: CK-MB VALUE MASS 5.5 NG/ML (<3.6)
[2025-03-05 12:23] LABS: CPK CREATINE PHOSPHOKINASE 287.0 U/L (46-171); MB/CK RELATIVE INDEX 1.91 (< OR =4)
[2025-03-05] MEDS ORDERED: TRUL10IN INJ (12:41)
[2025-03-05] MEDS ORDERED: LORA-930 PO (12:41)
[2025-03-05] MEDS ORDERED: EZET10TA57 PO (12:41)
[2025-03-05] MEDS ORDERED: ASPI-226 PO (12:41)
[2025-03-05] MEDS ORDERED: DOCU100C16 PO (12:41)
[2025-03-05] MEDS ORDERED: TORS20TA2 PO (12:45)
[2025-03-05] MEDS ORDERED: CALC1CAP PO (12:45)
[2025-03-05] MEDS ORDERED: HOME MED LIST COMPLETE! XX SCH (12:45)
[2025-03-05 13:53] LABS: CPK CREATINE PHOSPHOKINASE 270 U/L (46-171)
[2025-03-05 14:05] LABS: ALT/SGPT 28 U/L (7.0-40); AST/SGOT 43 U/L (<34); CALCIUM LEVEL 7.9 MG/DL (8.3-10.6); CARBON DIOXIDE LEVEL 22 MMOL/L (20-31); CHLORIDE LEVEL 106 MMOL/L (98-107); CK-MB VALUE MASS 5.5 NG/ML (<3.6); CREATININE FOR GFR 4.12 MG/DL (0.70-1.30); GLOMERULAR FILTRATION RATE 14.6 (>42); MB/CK RELATIVE INDEX 2.03 (< OR =4); POTASSIUM SERUM 3.4 MMOL/L (3.5-5.1); SODIUM LEVEL 141 MMOL/L (136-145)
[2025-03-05 16:53] LABS: APPEARANCE, BODY FLUID HAZY (CLEAR); ASCITES FL COLOR YELLOW (COLORLESS); SOURCE, BODY FLUID ASCITES
[2025-03-05] MEDS ORDERED: cefTRIAXone SOD 2 GM in DEXTROSE 5% (D5W) ADV/MINI-BAG 50 ML IV ONE (18:20)
[2025-03-05] MEDS ORDERED: GLUCAGON INJ 1 MG VIAL SC PRN (18:30)
[2025-03-05] MEDS ORDERED: GLUCOSE 4 GM CHEW PO PRN (18:30)
[2025-03-05] MEDS: POTASSIUM CHLORIDE 10MEQ SR TABLET PO ONE (18:49)
[2025-03-05 19:28] LABS: IRON (FE) 18 UG/DL (65-175); PERCENT SATURATION 5.7 % (19.7-50.0)
[2025-03-05 19:30] LABS: VITAMIN B12 LEVEL 704 PG/ML (211-911)
[2025-03-05 20:02] LABS: HEPATITIS C VIRUS ABY INDEX < 0.02 INDEX (<0.8)
[2025-03-05] MEDS: BISACODYL 10 MG SUPP PR ONE (21:00)
[2025-03-05] MEDS: INSULIN LISPRO (NovoLOG) PER UNIT SC SCH (21:00)
[2025-03-05] MEDS: cefTRIAXone SOD 1 GM in DEXTROSE 5% (D5W) ADV/MINI-BAG 50 ML IV SCH (21:38)
[2025-03-05] MEDS: DOXYCYCLINE HYCLATE 100 MG TABLET PO SCH (21:38)
[2025-03-05] MEDS: ROSUVASTATIN 10 MG TAB PO SCH (21:38)
[2025-03-05 22:39] LABS: APPEARANCE, URINE HAZY (CLEAR); BACTERIA, URINE AUTO NEGATIVE (NEGATIVE); BILIRUBIN, URINE AUTO NEGATIVE (NEGATIVE); BLOOD, URINE BLOOD 2+ (NEGATIVE); GLUCOSE, URINE (UA) AUTO NEGATIVE (NEGATIVE); KETONE, URINE AUTO NEGATIVE (NEGATIVE); LEUKOCYTE ESTERASE, URINE AUTO NEGATIVE (NEGATIVE); MUCUS, URINE SMALL (NEGATIVE); NITRITE, URINE AUTO NEGATIVE (NEGATIVE); PROTEIN, URINE AUTO 1+ mg/dL (NEGATIVE); RBC, URINE AUTO 0 /HPF (0-3); SPECIFIC GRAVITY URINE AUTO 1.011 (1.002-1.035); SQUAMOUS EPITHELIAL CELL UR AU 2 /HPF (0-6); UROBILINOGEN, URINE AUTO 0.2 mg/dL (0.0-2.0); WBC, URINE AUTO 6 /HPF (0-3)
[2025-03-06 08:04] LABS: PLATELET COUNT, AUTOMATED 110 10^3/uL (150-450)
[2025-03-06] MEDS: INSULIN LISPRO (NovoLOG) PER UNIT SC SCH (08:20)
[2025-03-06 08:59] LABS: ALT/SGPT 18.0 U/L (7.0-40); AST/SGOT 29.0 U/L (<34); CALCIUM LEVEL 7.8 MG/DL (8.3-10.6); CARBON DIOXIDE LEVEL 20.0 MMOL/L (20-31); CHLORIDE LEVEL 109.0 MMOL/L (98-107); CREATININE FOR GFR 3.62 MG/DL (0.70-1.30); GLOMERULAR FILTRATION RATE 17.1 (>42); POTASSIUM SERUM 2.6 MMOL/L (3.5-5.1); SODIUM LEVEL 144.0 MMOL/L (136-145)
[2025-03-06] MEDS: BISACODYL 10 MG SUPP PR SCH (09:00)
[2025-03-06] MEDS: LACTULOSE 20 GM/30 ML SYRUP UDC PO SCH (09:00)
[2025-03-06] MEDS: LORATADINE 10 MG TAB PO SCH (09:17)
[2025-03-06] MEDS: ASPIRIN 81 MG ENTERIC TABLET PO SCH (09:17)
[2025-03-06] MEDS: CLOPIDOGREL 75 MG TAB PO SCH (09:17)
[2025-03-06] MEDS: PANTOPRAZOLE 40MG TAB PO SCH (09:17)
[2025-03-06] MEDS: CALCITRIOL 0.25 MCG CAP (S0169) PO SCH (09:18)
[2025-03-06] MEDS: POTASSIUM CHLORIDE 10MEQ SR TABLET PO SCH (09:18)
[2025-03-06] MEDS: METOPROLOL TARTRATE 100 MG TAB PO SCH (09:18)
[2025-03-06] MEDS: EZETIMIBE 10 MG TABLET PO SCH (09:19)
[2025-03-06] MEDS: CALCIUM ACETATE 667 MG GELCAP PO SCH (09:19)
[2025-03-06 12:00] VITALS: BP 119/58; TEMP 98.1; O2SAT 96
[2025-03-06] MEDS: KCL 10MEQ/100ML SWI (KRUN) 10 MEQ in IV 1 EA IV SCH (12:45)
[2025-03-06 15:10] VITALS: BP 115/62; TEMP 97.8; O2SAT 96
[2025-03-06] MEDS: LACTULOSE 20 GM/30 ML SYRUP UDC PR ONE (15:15)
[2025-03-06] MEDS: FERRIC CARBOXYMALTOSE INJ 750 MG, VIAL MATE ADAPTER 1 EACH in NS 100 ML IV ONE (16:05)
[2025-03-06 17:31] VITALS: BP 119/64; TEMP 98.4; O2SAT 97
[2025-03-06 18:47] VITALS: BP 121/65; TEMP 98.7; O2SAT 98
[2025-03-06 19:54] VITALS: BP 118/71; TEMP 98.6; O2SAT 95
[2025-03-06] MEDS: ONDANSETRON 4MG/2ML VIAL IV PRN (20:58)
[2025-03-06] MEDS: ACETAMINOPHEN 500 MG TAB PO ONE (22:48)
[2025-03-07] VITALS (9 sets, daily range): BP systolic 99–112; BP diastolic 54–67; TEMP 98.1–98.9; O2SAT 83–96
[2025-03-07] MEDS: LIDOCAINE 5% PATCH TD ONE (02:06)
[2025-03-07] MEDS: traMADol 50 MG TAB PO ONE (06:30)
[2025-03-07 07:18] LABS: BASO # 0.1 10^3/uL (0.0-0.2); BASO % 0.4 % (0.0-1.0); EOS # 0.1 10^3/uL (0.0-0.5); EOS % 0.6 % (0.0-3.0); LYMPH # 2.5 10^3/uL (1.5-5.0); LYMPH % 12.2 % (24.0-44.0); MONO # 2.5 10^3/uL (0.0-0.8); MONO % 12.0 % (2.0-8.0); NEUTROPHILS # 15.2 10^3/uL (1.5-8.5); NEUTROPHILS % 74.0 % (36.0-66.0); PLATELET COUNT, AUTOMATED 175 10^3/uL (150-450)
[2025-03-07 07:46] LABS: CALCIUM LEVEL 8.9 MG/DL (8.3-10.6); CARBON DIOXIDE LEVEL 20.0 MMOL/L (20-31); CHLORIDE LEVEL 108.0 MMOL/L (98-107); CREATININE FOR GFR 3.24 MG/DL (0.70-1.30); GLOMERULAR FILTRATION RATE 19.5 (>42); MAGNESIUM LEVEL 2.7 MG/DL (1.8-2.4); PHOSPHORUS LEVEL 3.6 MG/DL (2.4-5.1); POTASSIUM SERUM 3.0 MMOL/L (3.5-5.1); SODIUM LEVEL 142.0 MMOL/L (136-145)
[2025-03-07] MEDS: POTASSIUM CHLORIDE 10MEQ SR TABLET PO SCH (08:25)
[2025-03-07] MEDS: NYSTATIN 100,000 UNITS/GM TOPICAL PWD 15 GM TOP SCH (08:27)
[2025-03-07] MEDS: HEPARIN SOD 5000 UNITS/ML 1 ML VIAL/SYRINGE SQ SCH (20:55)
[2025-03-07 21:50] LABS: ABG BASE EXCESS -9.9 (-2.0-2.0); ABG HCO3 14.8 MMOL/L (22.0-26.0); ABG O2 SATURATION 88.6 % (95.0-99.0); ABG PARTIAL PRESSURE CO2 28.9 mmHg (35.0-45.0); ABG PARTIAL PRESSURE O2 58.5 mmHg (75.0-100.0); ABG STANDARD HCO3 16.4 MMOL/L. (22.0-26.0); ABG TOTAL CO2 15.7 MMOL/L (23.0-31.0); ABG pH (ARTERIAL) 7.327 UNITS (7.350-7.450)
[2025-03-08] VITALS (82 sets, daily range): BP systolic 65–134; BP diastolic 40–80; TEMP 95.4–99.5; O2SAT 84–99
[2025-03-08] MEDS: MORPHINE 2 MG/ML 1 ML VIAL IV PRN (03:08)
[2025-03-08] MEDS: MIDODRINE 5 MG TAB PO ONE ×2 (03:57→07:00)
[2025-03-08 07:03] LABS: PLATELET COUNT, AUTOMATED 309 10^3/uL (150-450)
[2025-03-08 07:42] LABS: ATYPICAL LYMPH 1 % (0-5); LYMPHOCYTES 5 % (16-44); MONOCYTES 18 % (0-5); NEUTROPHILS 76 % (28-66)
[2025-03-08] MEDS ORDERED: NOREPINEPHRINE 4 MG IN D5W 250 ML IVBAG (16 MCG/ML) As Ordered ONE (07:43)
[2025-03-08] MEDS: NOREPINEPHRINE 4MG IN D5 250ML 4 MG in IV 1 EA IV SCH (07:45)
[2025-03-08] MEDS ORDERED: HYDROCORTISONE 100 MG/2 ML VIAL IV STA (07:48)
[2025-03-08 07:52] LABS: ALT/SGPT 50.0 U/L (7.0-40); AST/SGOT 203.0 U/L (<34); CALCIUM LEVEL 9.4 MG/DL (8.3-10.6); CARBON DIOXIDE LEVEL 11.0 MMOL/L (20-31); CHLORIDE LEVEL 107.0 MMOL/L (98-107); CREATININE FOR GFR 4.34 MG/DL (0.70-1.30); GLOMERULAR FILTRATION RATE 13.7 (>42); POTASSIUM SERUM 5.3 MMOL/L (3.5-5.1); SODIUM LEVEL 141.0 MMOL/L (136-145)
[2025-03-08] MEDS ORDERED: VASOPRESSIN IN 0.9 % NACL 20UNIT/100ML INFUS.BTL As Ordered ONE (07:52)
[2025-03-08 07:55] LABS: PLATELET ESTIMATE NORMAL (NORMAL)
[2025-03-08] MEDS: HYDROCORTISONE 100 MG/2 ML VIAL IV ONE (07:57)
[2025-03-08] MEDS: VASOPRESSIN IN 0.9 % NACL 20 UNIT in IV 1 EA IV SCH (08:00)
[2025-03-08] MEDS: MIDODRINE 5 MG TAB PO SCH (08:00)
[2025-03-08] MEDS ORDERED: CEFEPIME HCL 1 GM in DEXTROSE 5% (D5W) ADV/MINI-BAG 50 ML IV SCH (08:00)
[2025-03-08] MEDS: HEPARIN 1,000 UNITS/ML 10 ML VIAL (FOR RADIOLOGY & DIALYSIS ONLY) IV STA (08:47)
[2025-03-08] MEDS ORDERED: HEPARIN 1,000 UNITS/ML 10 ML VIAL (FOR RADIOLOGY & DIALYSIS ONLY) CRRT PRN ×2 (08:55)
[2025-03-08] MEDS ORDERED: SODIUM CHLORIDE 0.9% INJ 10 ML SYR CRRT PRN ×2 (08:55)
[2025-03-08 09:49] LABS: ABG BASE EXCESS -15.6 (-2.0-2.0); ABG HCO3 11.0 MMOL/L (22.0-26.0); ABG O2 SATURATION 88.9 % (95.0-99.0); ABG PARTIAL PRESSURE CO2 28.9 mmHg (35.0-45.0); ABG PARTIAL PRESSURE O2 65.6 mmHg (75.0-100.0); ABG STANDARD HCO3 12.4 MMOL/L. (22.0-26.0); ABG TOTAL CO2 11.9 MMOL/L (23.0-31.0)
[2025-03-08 09:50] LABS: ABG pH (ARTERIAL) 7.200 UNITS (7.350-7.450)
[2025-03-08 10:00] LABS: PLATELET COUNT, AUTOMATED 292 10^3/uL (150-450)
[2025-03-08 10:21] LABS: INR 2.32
[2025-03-08 10:23] LABS: CALCIUM LEVEL 8.8 MG/DL (8.3-10.6); CARBON DIOXIDE LEVEL 13.0 MMOL/L (20-31); CHLORIDE LEVEL 107.0 MMOL/L (98-107); CREATININE FOR GFR 4.4 MG/DL (0.70-1.30); GLOMERULAR FILTRATION RATE 13.5 (>42); MAGNESIUM LEVEL 2.8 MG/DL (1.8-2.4); POTASSIUM SERUM 4.3 MMOL/L (3.5-5.1); SODIUM LEVEL 139.0 MMOL/L (136-145)
[2025-03-08 10:52] LABS: PHOSPHORUS LEVEL 7.1 MG/DL (2.4-5.1)
[2025-03-08] MEDS: metroNIDAZOLE 500 MG in IV 1 EA IV SCH (11:00)
[2025-03-08 11:04] LABS: APPEARANCE, BODY FLUID TURBID (CLEAR); ASCITES FL COLOR RED (COLORLESS); SOURCE, BODY FLUID ASCITES
[2025-03-08] MEDS: CEFEPIME HCL 2 GM in DEXTROSE 5% (D5W) ADV/MINI-BAG 50 ML IV SCH (11:48)
[2025-03-08] MEDS ORDERED: MIDODRINE 5 MG TAB PO SCH (12:00)
[2025-03-08] MEDS: VANCOMYCIN HCL 1,000 MG, VIAL MATE ADAPTER 1 EACH in NS 250 ML IV ONE (12:39)
[2025-03-08 14:11] LABS: BASO # 0.1 10^3/uL (0.0-0.2); BASO % 0.1 % (0.0-1.0); EOS # 0.2 10^3/uL (0.0-0.5); EOS % 0.3 % (0.0-3.0); LYMPH # 3.9 10^3/uL (1.5-5.0); LYMPH % 6.2 % (24.0-44.0); MONO % 7.0 % (2.0-8.0); NEUTROPHILS # 52.4 10^3/uL (1.5-8.5); NEUTROPHILS % 83.4 % (36.0-66.0); PLATELET COUNT, AUTOMATED 254 10^3/uL (150-450)
[2025-03-08 14:15] LABS: MONO # 4.4 10^3/uL (0.0-0.8)
[2025-03-08 16:15] LABS: ABG BASE EXCESS -9.0 (-2.0-2.0); ABG HCO3 16.5 MMOL/L (22.0-26.0); ABG O2 SATURATION 94.0 % (95.0-99.0); ABG PARTIAL PRESSURE CO2 34.5 mmHg (35.0-45.0); ABG PARTIAL PRESSURE O2 80.5 mmHg (75.0-100.0); ABG STANDARD HCO3 17.1 MMOL/L. (22.0-26.0); ABG TOTAL CO2 17.6 MMOL/L (23.0-31.0); ABG pH (ARTERIAL) 7.298 UNITS (7.350-7.450)
[2025-03-08 18:24] LABS: PLATELET COUNT, AUTOMATED 204 10^3/uL (150-450)
[2025-03-08 18:45] LABS: INR 2.52
[2025-03-08 18:49] LABS: CALCIUM LEVEL 7.8 MG/DL (8.3-10.6); CARBON DIOXIDE LEVEL 19.0 MMOL/L (20-31); CHLORIDE LEVEL 105.0 MMOL/L (98-107); CREATININE FOR GFR 2.49 MG/DL (0.70-1.30); GLOMERULAR FILTRATION RATE 26.8 (>42); MAGNESIUM LEVEL 2.5 MG/DL (1.8-2.4); PHOSPHORUS LEVEL 4.5 MG/DL (2.4-5.1); POTASSIUM SERUM 4.3 MMOL/L (3.5-5.1); SODIUM LEVEL 139.0 MMOL/L (136-145)
[2025-03-08] MEDS: CALCIUM GLUCONATE 1,000 MG in DEXTROSE 5% (D5W) MINI-BAG PLU 100 ML IV SCH (19:22)
[2025-03-08] MEDS: VANCOMYCIN HCL 1,000 MG, VIAL MATE ADAPTER 1 EACH in NS 250 ML IV SCH (20:21)
[2025-03-09] VITALS (95 sets, daily range): BP systolic 95–139; BP diastolic 40–64; TEMP 94.6–98.6; O2SAT 91–100
[2025-03-09 00:32] LABS: PLATELET COUNT, AUTOMATED 183 10^3/uL (150-450)
[2025-03-09 00:49] LABS: CALCIUM LEVEL 7.8 MG/DL (8.3-10.6); CARBON DIOXIDE LEVEL 18.0 MMOL/L (20-31); CHLORIDE LEVEL 105.0 MMOL/L (98-107); CREATININE FOR GFR 1.81 MG/DL (0.70-1.30); GLOMERULAR FILTRATION RATE 39.2 (>42); MAGNESIUM LEVEL 2.4 MG/DL (1.8-2.4); PHOSPHORUS LEVEL 4.1 MG/DL (2.4-5.1); POTASSIUM SERUM 4.5 MMOL/L (3.5-5.1); SODIUM LEVEL 140.0 MMOL/L (136-145)
[2025-03-09 01:05] LABS: INR 2.5
[2025-03-09] MEDS: CALCIUM GLUCONATE 1,000 MG in DEXTROSE 5% (D5W) MINI-BAG PLU 100 ML IV SCH ×2 (01:11→07:52)
[2025-03-09] MEDS: SODIUM CHLORIDE HYPERTONIC 3% 4ML NEB SOL INH PRN (01:24)
[2025-03-09] MEDS: ALBUTEROL SULFATE 2.5 MG/0.5 ML INH CONCENTRATE NEB SOLN NEB PRN (01:35)
[2025-03-09 06:12] LABS: PLATELET COUNT, AUTOMATED 151 10^3/uL (150-450)
[2025-03-09 06:34] LABS: INR 2.56
[2025-03-09 06:42] LABS: CALCIUM LEVEL 7.9 MG/DL (8.3-10.6); CARBON DIOXIDE LEVEL 18.0 MMOL/L (20-31); CHLORIDE LEVEL 104.0 MMOL/L (98-107); CREATININE FOR GFR 1.54 MG/DL (0.70-1.30); GLOMERULAR FILTRATION RATE 47.6 (>42); MAGNESIUM LEVEL 2.4 MG/DL (1.8-2.4); PHOSPHORUS LEVEL 4.3 MG/DL (2.4-5.1); POTASSIUM SERUM 4.4 MMOL/L (3.5-5.1); SODIUM LEVEL 139.0 MMOL/L (136-145)
[2025-03-09] MEDS ORDERED: cefTRIAXone SOD 2 GM in DEXTROSE 5% (D5W) ADV/MINI-BAG 50 ML IV SCH (09:00)
[2025-03-09] MEDS: cefTRIAXone SOD 2 GM in DEXTROSE 5% (D5W) ADV/MINI-BAG 50 ML IV SCH (10:24)
[2025-03-09 12:29] LABS: PLATELET COUNT, AUTOMATED 160 10^3/uL (150-450)
[2025-03-09 12:51] LABS: INR 2.78
[2025-03-09 12:57] LABS: CALCIUM LEVEL 7.9 MG/DL (8.3-10.6); CARBON DIOXIDE LEVEL 17.0 MMOL/L (20-31); CHLORIDE LEVEL 103.0 MMOL/L (98-107); CREATININE FOR GFR 1.35 MG/DL (0.70-1.30); GLOMERULAR FILTRATION RATE 55.8 (>42); MAGNESIUM LEVEL 2.5 MG/DL (1.8-2.4); PHOSPHORUS LEVEL 4.3 MG/DL (2.4-5.1); POTASSIUM SERUM 4.2 MMOL/L (3.5-5.1); SODIUM LEVEL 137.0 MMOL/L (136-145)
[2025-03-09] MEDS: CALCIUM GLUCONATE 1,000 MG, VIAL MATE ADAPTER 1 EACH in NS 100 ML IV SCH ×2 (14:43→18:55)
[2025-03-09 18:02] LABS: PLATELET COUNT, AUTOMATED 168 10^3/uL (150-450)
[2025-03-09] MEDS: DEXTROSE 50% 50 ML SYRINGE IV PRN (18:03)
[2025-03-09 18:27] LABS: CALCIUM LEVEL 8.0 MG/DL (8.3-10.6); CARBON DIOXIDE LEVEL 15.0 MMOL/L (20-31); CHLORIDE LEVEL 104.0 MMOL/L (98-107); CREATININE FOR GFR 1.16 MG/DL (0.70-1.30); GLOMERULAR FILTRATION RATE 66.9 (>42); INR 2.92; MAGNESIUM LEVEL 2.5 MG/DL (1.8-2.4); PHOSPHORUS LEVEL 4.6 MG/DL (2.4-5.1); POTASSIUM SERUM 4.4 MMOL/L (3.5-5.1); SODIUM LEVEL 138.0 MMOL/L (136-145)
[2025-03-09] MEDS: HYDROCORTISONE 100 MG/2 ML VIAL IV SCH (20:56)
[2025-03-10] VITALS (95 sets, daily range): BP systolic 89–155; BP diastolic 37–66; TEMP 94.6–96.3; O2SAT 88–96
[2025-03-10 00:13] LABS: PLATELET COUNT, AUTOMATED 179 10^3/uL (150-450)
[2025-03-10 00:24] LABS: CALCIUM LEVEL 7.9 MG/DL (8.3-10.6); CARBON DIOXIDE LEVEL 11.0 MMOL/L (20-31); CHLORIDE LEVEL 105.0 MMOL/L (98-107); CREATININE FOR GFR 1.05 MG/DL (0.70-1.30); GLOMERULAR FILTRATION RATE 75.4 (>42); MAGNESIUM LEVEL 2.6 MG/DL (1.8-2.4); PHOSPHORUS LEVEL 4.9 MG/DL (2.4-5.1); POTASSIUM SERUM 4.5 MMOL/L (3.5-5.1); SODIUM LEVEL 138.0 MMOL/L (136-145)
[2025-03-10 00:26] LABS: INR 3.17
[2025-03-10] MEDS: CALCIUM GLUCONATE 1,000 MG in DEXTROSE 5% (D5W) MINI-BAG PLU 100 ML IV SCH ×3 (01:43→19:49)
[2025-03-10 06:04] LABS: PLATELET COUNT, AUTOMATED 151 10^3/uL (150-450)
[2025-03-10 06:34] LABS: CALCIUM LEVEL 7.9 MG/DL (8.3-10.6); CARBON DIOXIDE LEVEL 12.0 MMOL/L (20-31); CHLORIDE LEVEL 103.0 MMOL/L (98-107); CREATININE FOR GFR 0.96 MG/DL (0.70-1.30); GLOMERULAR FILTRATION RATE 84.0 (>42); MAGNESIUM LEVEL 2.6 MG/DL (1.8-2.4); PHOSPHORUS LEVEL 4.5 MG/DL (2.4-5.1); POTASSIUM SERUM 4.6 MMOL/L (3.5-5.1); SODIUM LEVEL 136.0 MMOL/L (136-145)
[2025-03-10 06:38] LABS: INR 3.82
[2025-03-10] MEDS: PANTOPRAZOLE 40MG VIAL IV SCH (08:15)
[2025-03-10] MEDS: MORPHINE 2 MG/ML 1 ML VIAL IV PRN (08:30)
[2025-03-10] MEDS: D10W 1,000 ML IV SCH (08:34)
[2025-03-10] MEDS: MEROPENEM 1 GM in IV 1 EA IV ONE (09:14)
[2025-03-10 12:07] LABS: ABG BASE EXCESS -16.0 (-2.0-2.0); ABG HCO3 11.0 MMOL/L (22.0-26.0); ABG O2 SATURATION 89.5 % (95.0-99.0); ABG PARTIAL PRESSURE CO2 30.3 mmHg (35.0-45.0); ABG PARTIAL PRESSURE O2 71.5 mmHg (75.0-100.0); ABG STANDARD HCO3 12.0 MMOL/L. (22.0-26.0); ABG TOTAL CO2 12.0 MMOL/L (23.0-31.0)
[2025-03-10 12:12] LABS: PLATELET COUNT, AUTOMATED 128 10^3/uL (150-450)
[2025-03-10 12:16] LABS: ABG pH (ARTERIAL) 7.198 UNITS (7.350-7.450)
[2025-03-10 12:38] LABS: CALCIUM LEVEL 7.6 MG/DL (8.3-10.6); CARBON DIOXIDE LEVEL 14.0 MMOL/L (20-31); CHLORIDE LEVEL 104.0 MMOL/L (98-107); CREATININE FOR GFR 0.91 MG/DL (0.70-1.30); GLOMERULAR FILTRATION RATE 89.6 (>42); MAGNESIUM LEVEL 2.5 MG/DL (1.8-2.4); PHOSPHORUS LEVEL 4.9 MG/DL (2.4-5.1); POTASSIUM SERUM 4.8 MMOL/L (3.5-5.1); SODIUM LEVEL 136.0 MMOL/L (136-145)
[2025-03-10 12:55] LABS: INR 5.15
[2025-03-10 12:57] LABS: ALT/SGPT 693.0 U/L (7.0-40); AST/SGOT 2890.0 U/L (<34)
[2025-03-10] MEDS: PHENYLEPHRINE HCL INJ 50 MG in D5W 495 ML IV SCH (13:32)
[2025-03-10] MEDS: CALCIUM GLUCONATE 1,000 MG, VIAL MATE ADAPTER 1 EACH in NS 100 ML IV SCH (13:41)
[2025-03-10] MEDS: MEROPENEM 500 MG in IV 1 EA IV SCH (17:32)
[2025-03-10 18:15] LABS: ABG TOTAL CO2 11.5 MMOL/L (23.0-31.0)
[2025-03-10 18:17] LABS: ABG BASE EXCESS -17.6 (-2.0-2.0); ABG HCO3 10.5 MMOL/L (22.0-26.0); ABG O2 SATURATION 91.2 % (95.0-99.0); ABG PARTIAL PRESSURE CO2 33.4 mmHg (35.0-45.0); ABG PARTIAL PRESSURE O2 79.0 mmHg (75.0-100.0); ABG STANDARD HCO3 10.8 MMOL/L. (22.0-26.0); ABG pH (ARTERIAL) 7.115 UNITS (7.350-7.450)
[2025-03-10 18:19] LABS: PLATELET COUNT, AUTOMATED 118 10^3/uL (150-450)
[2025-03-10 18:41] LABS: CALCIUM LEVEL 7.3 MG/DL (8.3-10.6); CARBON DIOXIDE LEVEL 11 MMOL/L (20-31); CHLORIDE LEVEL 103 MMOL/L (98-107); CREATININE FOR GFR 0.85 MG/DL (0.70-1.30); GLOMERULAR FILTRATION RATE > 90.0 (>42); MAGNESIUM LEVEL 2.4 MG/DL (1.8-2.4); PHOSPHORUS LEVEL 4.9 MG/DL (2.4-5.1); POTASSIUM SERUM 4.9 MMOL/L (3.5-5.1); SODIUM LEVEL 135 MMOL/L (136-145)
[2025-03-10] MEDS: D10W 500 ML IV SCH (18:43)
[2025-03-10 19:15] LABS: INR 5.82
[2025-03-11] VITALS (33 sets, daily range): BP systolic 79–143; BP diastolic 39–77; TEMP 93.7–95
[2025-03-11 00:36] LABS: PLATELET COUNT, AUTOMATED 106 10^3/uL (150-450)
[2025-03-11 00:43] LABS: CALCIUM LEVEL 6.7 MG/DL (8.3-10.6); CARBON DIOXIDE LEVEL 15 MMOL/L (20-31); CHLORIDE LEVEL 99 MMOL/L (98-107); CREATININE FOR GFR 0.79 MG/DL (0.70-1.30); GLOMERULAR FILTRATION RATE > 90.0 (>42); MAGNESIUM LEVEL 2.4 MG/DL (1.8-2.4); PHOSPHORUS LEVEL 5.8 MG/DL (2.4-5.1); POTASSIUM SERUM 5.3 MMOL/L (3.5-5.1); SODIUM LEVEL 130 MMOL/L (136-145)
[2025-03-11 00:45] LABS: INR 7.42
[2025-03-11] MEDS: CALCIUM GLUCONATE 1,000 MG in DEXTROSE 5% (D5W) MINI-BAG PLU 100 ML IV SCH (00:50)
[2025-03-11] MEDS ORDERED: NOREPINEPHRINE BITARTRATE 16 MG in D5W 484 ML IV SCH (02:00)
[2025-03-11] MEDS: SODIUM BICARBONATE 150 MEQ in D5W 1,000 ML IV SCH (02:54)
[2025-03-11] MEDS: NOREPINEPHRINE BITARTRATE 16 MG in D5W 484 ML IV SCH (05:00)
[2025-03-11 06:13] LABS: PLATELET COUNT, AUTOMATED 101 10^3/uL (150-450)
[2025-03-11 06:33] LABS: LYMPHOCYTES 14 % (16-44); METAMYELOCYTES 2 % (0-0); MONOCYTES 7 % (0-5); MYELOCYTES 3 % (0-0); NEUTROPHILS 61 % (28-66); PLATELET ESTIMATE DECREASED (NORMAL)
[2025-03-11 06:39] LABS: MAGNESIUM LEVEL 2.4 MG/DL (1.8-2.4); PHOSPHORUS LEVEL 5.8 MG/DL (2.4-5.1)
[2025-03-11 07:09] LABS: ALT/SGPT 1197 U/L (7.0-40); AST/SGOT > 6000 U/L (<34); CALCIUM LEVEL 6.5 MG/DL (8.3-10.6); CARBON DIOXIDE LEVEL 19 MMOL/L (20-31); CHLORIDE LEVEL 96 MMOL/L (98-107); CREATININE FOR GFR 0.76 MG/DL (0.70-1.30); GLOMERULAR FILTRATION RATE > 90.0 (>42); POTASSIUM SERUM 5.5 MMOL/L (3.5-5.1); SODIUM LEVEL 126 MMOL/L (136-145)
[2025-03-11 07:12] LABS: INR 9.36
[2025-03-11] MEDS ORDERED: MORPHINE 2 MG/ML 1 ML VIAL IV PRN (07:40)
[2025-03-11] MEDS ORDERED: ONDANSETRON 4MG/2ML VIAL IV PRN (07:40)
[2025-03-11] MEDS ORDERED: PHENYLEPHRINE HCL INJ 100 MG in D5W 990 ML IV SCH (09:00)
== END 2025-03-11 08:36 | disposition expired | DRG 432 ==
LOC: M ED 09:30 → EDBD 09:30 → M ED INP 18:26 → M MSPAV 03-06 15:02 → M ICU 03-08 06:55
PROVIDERS: ADMIT Internal Medicine; ATTEND Internal Medicine Pulmonary Disease
PROC: 0W9G3ZX Drainage of Peritoneal Cavity, Percutaneous Approach, Diagnostic (ICD-10-PCS; 2025-03-05)
PROC: B246ZZZ Ultrasonography of Right and Left Heart (ICD-10-PCS; principal; 2025-03-06)
PROC: 02HV33Z Insertion of Infusion Device into Superior Vena Cava, Percutaneous Approach (ICD-10-PCS; 2025-03-08)
PROC: 0W9G3ZZ Drainage of Peritoneal Cavity, Percutaneous Approach (ICD-10-PCS; 2025-03-08)
PROC: 03HY32Z Insertion of Monitoring Device into Upper Artery, Percutaneous Approach (ICD-10-PCS; 2025-03-08)
PROC: 06HN33Z Insertion of Infusion Device into Left Femoral Vein, Percutaneous Approach (ICD-10-PCS; 2025-03-08)
DX: K74.60 Unspecified cirrhosis of liver (principal); J96.01 Acute respiratory failure with hypoxia; K65.2 Spontaneous bacterial peritonitis; G93.41 Metabolic encephalopathy; A41.9 Sepsis, unspecified organism; R65.21 Severe sepsis with septic shock; N18.6 End stage renal disease; R18.8 Other ascites; J98.11 Atelectasis; N17.9 Acute kidney failure, unspecified; N25.81 Secondary hyperparathyroidism of renal origin; E87.20 Acidosis, unspecified; D68.4 Acquired coagulation factor deficiency; I13.2 Hypertensive heart and chronic kidney disease with heart failure and with stage 5 chronic kidney disease, or end stage renal disease; Z51.5 Encounter for palliative care; Z66 Do not resuscitate; K59.81 Ogilvie syndrome; I25.10 Atherosclerotic heart disease of native coronary artery without angina pectoris; E11.22 Type 2 diabetes mellitus with diabetic chronic kidney disease; E78.5 Hyperlipidemia, unspecified; R57.0 Cardiogenic shock; J44.9 Chronic obstructive pulmonary disease, unspecified; G47.33 Obstructive sleep apnea (adult) (pediatric); E11.649 Type 2 diabetes mellitus with hypoglycemia without coma; I50.9 Heart failure, unspecified; K59.09 Other constipation; R53.1 Weakness; E87.6 Hypokalemia; E87.5 Hyperkalemia; D63.1 Anemia in chronic kidney disease; R29.6 Repeated falls; R68.0 Hypothermia, not associated with low environmental temperature; K62.89 Other specified diseases of anus and rectum; D50.9 Iron deficiency anemia, unspecified; Z79.82 Long term (current) use of aspirin; Z79.02 Long term (current) use of antithrombotics/antiplatelets; Z79.899 Other long term (current) drug therapy; Z88.0 Allergy status to penicillin; Z88.1 Allergy status to other antibiotic agents; Z88.8 Allergy status to other drugs, medicaments and biological substances; Z95.5 Presence of coronary angioplasty implant and graft